=== PATIENT | female | born 1955 | race Caucasian/White ===

== ENCOUNTER 2017-09-24 16:50 | Inpatient (IN) | payer OTHER ==
[~2017-09-24] VITALS: Ht 170.2 cm; Wt 95.5 kg
[~2017-09-24 16:50] MED LIST: ADIPEX-P37.5 MG; ASPIRIN CHEW81 MG PO; BACLOFEN10 MG PO; CETIRIZINE HCL10 MG PO; ELMIRON100 MG PO; LIDODERM700 MG TOP; LIPO; METHYLPREDNISOLO4 M1 PO; METOPROLOL PO; METOPROLOL TART25 MG PO; PANTOPRAZOLE SO40 MG PO; ULTRAM50 MG PO; VITAMIN D1000 UNI1 PO; Z FISH OIL MT; Z VITAMIN D MT; Z.0.ASPIRIN CHEW81 M PO; Z.0.BYSTOLIC10 MG PO; Z.0.ELMIRON100 MG MT; Z.0.ZYRTEC10 MG MT; Z.1.ZEGERID 40 MG1 E MT; ZANTAC PO; ZYRTEC10 M3 PO; [UNRECOGNIZED DRUG - OTHER]
[2017-09-24 17:52] LABS: BASOPHILS # (AUTO) 0.1 (0.0-0.1); BASOPHILS % 0.6 % (0.0-1.0); EOSINOPHILS # (AUTO) 0.3 (0.0-0.4); EOSINOPHILS % 2.1 % (0.0-6.0); HEMATOCRIT 44.1 % (34.2-44.1); HEMOGLOBIN 14.1 g/dL (12.0-16.0); LYMPHOCYTES # (AUTO) 3.2 (1.0-3.2); LYMPHOCYTES % 22.6 % (18.0-39.1); MEAN CORPUSCULAR HEMOGLOBIN 28.4 pg (28-32); MEAN CORPUSCULAR VOLUME 88.9 fL (81-99); MONOCYTES # (AUTO) 1.3 (0.2-0.8); MONOCYTES % 9.5 % (4.4-11.3); NEUTROPHILS # (AUTO) 8.9 (2.1-6.9); NEUTROPHILS % 63.7 % (38.7-80.0); PLATELET COUNT 260 x10e3/uL (140-360); RED BLOOD COUNT 4.96 x10e6/uL (3.6-5.1); RED CELL DISTRIBUTION WIDTH 14.3 % (11.7-14.4)
[2017-09-24 18:02] LABS: COLOR,URINE YELLOW (YELLOW)
[2017-09-24 18:03] LABS: BILIRUBIN,URINE NEGATIVE (NEGATIVE); CLARITY,URINE CLEAR (CLEAR); KETONES,URINE NEGATIVE (NEGATIVE); LEUKOCYTE ESTERASE ,URINE NEGATIVE (NEGATIVE); NITRITE,URINE NEGATIVE (NEGATIVE); PROTEIN,URINE DIPSTICK NEGATIVE (NEGATIVE); URINE UROBILINOGEN 0.2 mg/dL (0.2 - 1)
[2017-09-24 18:08] LABS: ALBUMIN 3.5 g/dL (3.5-5.0); ANION GAP 13.3 mmol/L (8-16); CALCIUM 9.7 mg/dL (8.4-10.2); CREATININE, SERUM 1.07 mg/dL (0.57-1.11); POTASSIUM 4.3 mmol/L (3.5-5.1)
[2017-09-24 18:16] LABS: BACTERIA,URINE FEW /HPF; CALCIUM OXALATE CRYSTALS,UR MANY (FEW); EPITHELIAL CELLS,URINE FEW /LPF; WBC,URINE (MAN) 0-5 /HPF (0-5)
[2017-09-24] MEDS ORDERED: MORPHINE SULFATE 2 MG/ML SYR IV STA (18:17)
[2017-09-24] MEDS ORDERED: SODIUM CHLORIDE 0.9% 1000ML 1,000 ML IV STA (18:17)
[2017-09-24] MEDS ORDERED: ONDANSETRON HCL INJ 2 MG/ML VIAL IV STA (18:17)
[2017-09-24 18:32] LABS: AMYLASE 94 U/L (25-125); LIPASE 173 U/L (8-78)
[2017-09-24] MEDS ORDERED: DIATRIZOATE MEGL/DIATRIZOA SOD 30 ML BTL PO ONE (18:39)
[2017-09-24] MEDS ORDERED: KETOROLAC TROMETHAMINE 30 MG/ML VIAL IV ONE (18:45)
[2017-09-24 18:47] LABS: CREATINE KINASE 75 IU/L (29-168)
--- NOTE | 2017-09-24 20:24 | Diagnostic Imaging Report ---
EXAM: CT Abdomen and Pelvis WITH contrast INDICATION: COMPARISON: None. TECHNIQUE: Abdomen and Pelvis was scanned utilizing a multidetector helical scanner after administration of IV contrast. Coronal and sagittal reformations were obtained. IV CONTRAST: 100 mL Isovue-370 COMPLICATIONS: None RADIATION DOSE: Total DLP:879 mGy*cm Estimated effective dose: (DLP x 0.015 x size factor) mSv CTDIvol has been reviewed. It is below the limits set by the Radiation Protocol Committee (RPC). FINDINGS: Abdomen: Lung Bases: Atelectasis. Solid Organs: Decreased attenuation the liver present consistent with steatosis. Solid organs otherwise unremarkable. Upper GI Tract: Gastric decompression limits adequate evaluation. No small bowel obstructive changes. Vascularity: Mild aortic vascular calcifications with no aneurysm. Lymph Nodes: No suspicious adenopathy. Other: Diastases ventral abdominal wall with apparent prior hernia repair changes. Pelvis: Bladder: Unremarkable. Other: Uterus absent. Calcified injection granulomata. Colon: There are a few scattered diverticula. No CT evidence of diverticulitis. Appendix not inflamed. Bones: Lower lumbar degenerative changes with degenerative anterolisthesis L5-S1. Soft tissue lipoma inferior aspect right scapula. IMPRESSION: 1. No distinct acute finding. 2. Diverticulosis without CT evidence of diverticulitis. 3. Hepatic steatosis. Signed by: Dr. Rogerio Littlejohn MD on 09/24/2017 8:21 PM
[2017-09-24 23:05] VITALS: BP 141/82
[2017-09-24] MEDS: SODIUM CHLORIDE 0.9% 1000ML 1,000 ML IV SCH (23:36)
[2017-09-25] VITALS (8 sets, daily range): BP systolic 107–141; BP diastolic 61–82
[2017-09-25] MEDS: ONDANSETRON HCL INJ 2 MG/ML VIAL IV PRN ×3 (04:10→22:15)
[2017-09-25 06:44] LABS: BASOPHILS # (AUTO) 0.1 (0.0-0.1); BASOPHILS % 0.7 % (0.0-1.0); EOSINOPHILS # (AUTO) 0.2 (0.0-0.4); EOSINOPHILS % 1.9 % (0.0-6.0); HEMOGLOBIN 13.6 g/dL (12.0-16.0); LYMPHOCYTES # (AUTO) 2.8 (1.0-3.2); LYMPHOCYTES % 27.2 % (18.0-39.1); MEAN CORPUSCULAR HEMOGLOBIN 28.5 pg (28-32); MEAN CORPUSCULAR HGB CONC 31.6 g/dL (31-35); MEAN CORPUSCULAR VOLUME 90.1 fL (81-99); MONOCYTES # (AUTO) 0.8 (0.2-0.8); MONOCYTES % 8.1 % (4.4-11.3); NEUTROPHILS # (AUTO) 6.4 (2.1-6.9); NEUTROPHILS % 61.5 % (38.7-80.0); PLATELET COUNT 230 x10e3/uL (140-360); RED BLOOD COUNT 4.77 x10e6/uL (3.6-5.1); RED CELL DISTRIBUTION WIDTH 14.2 % (11.7-14.4)
[2017-09-25 07:11] LABS: ALANINE AMINOTRANSFERASE 23 IU/L (0-55); ALBUMIN 3.1 g/dL (3.5-5.0); ALKALINE PHOSPHATASE 78 IU/L (40-150); AMYLASE 73 U/L (25-125); ANION GAP 9.5 mmol/L (8-16); BLOOD UREA NITROGEN 21 mg/dL (7-26); BUN/CREATININE RATIO 23 (6-25); CALCIUM 8.8 mg/dL (8.4-10.2); CARBON DIOXIDE 27 mmol/L (22-29); CHLORIDE 107 mmol/L (98-107); EST GLOMERULAR FILTRATION RATE > 60 ML/MIN (60-); GLUCOSE 99 mg/dL (74-118); LIPASE 86 U/L (8-78); POTASSIUM 4.5 mmol/L (3.5-5.1); SODIUM 139 mmol/L (136-145)
[2017-09-25] MEDS: SODIUM CHLORIDE 0.9% 1000ML 1,000 ML IV SCH ×3 (08:28→17:42)
[2017-09-25] MEDS: HYDROMORPHONE 1MG/1ML INJ IV PRN ×3 (09:00→22:15)
[2017-09-25] MEDS ORDERED: ACETAMINOPHEN 325 MG TAB PO PRN (18:00)
[2017-09-26] VITALS (7 sets, daily range): BP systolic 112–140; BP diastolic 66–78
[2017-09-26] MEDS: SODIUM CHLORIDE 0.9% 1000ML 1,000 ML IV SCH ×5 (00:22→19:54)
[2017-09-26] MEDS: ONDANSETRON HCL INJ 2 MG/ML VIAL IV PRN ×4 (03:10→21:18)
[2017-09-26] MEDS: LORAZEPAM 1 MG TAB PO PRN (21:18)
[2017-09-26] MEDS: HYDROMORPHONE 1MG/1ML INJ IV PRN (21:18)
[2017-09-27] VITALS (8 sets, daily range): BP systolic 125–158; BP diastolic 59–89
[2017-09-27] MEDS: SODIUM CHLORIDE 0.9% 1000ML 1,000 ML IV SCH ×3 (03:02→20:42)
[2017-09-27] MEDS: PANTOPRAZOLE 40 MG 10ML VIAL IV SCH (10:30)
[2017-09-27] MEDS: LORAZEPAM 1 MG TAB PO PRN (20:42)
[2017-09-28] VITALS (8 sets, daily range): BP systolic 125–145; BP diastolic 59–78
[2017-09-28] MEDS ORDERED: ACETAMINOPHEN 325 MG TAB PO PRN (05:30)
[2017-09-28] MEDS: PANTOPRAZOLE 40 MG 10ML VIAL IV SCH (08:27)
[2017-09-28] MEDS: LORAZEPAM 1 MG TAB PO PRN (21:43)
[2017-09-29 01:14] VITALS: BP 114/63
[2017-09-29 05:13] VITALS: BP 137/73
[2017-09-29 08:00] VITALS: BP 124/84
== END 2017-09-29 10:30 | disposition home or self-care (01) | DRG 440 ==
LOC: ER 16:50 → ERHOLD 21:45 → MED/SURG3 22:14
PROVIDERS: ADMIT Internal Medicine; ATTEND Internal Medicine
DX: K85.00 Idiopathic acute pancreatitis without necrosis or infection (principal); I10 Essential (primary) hypertension; Z88.5 Allergy status to narcotic agent; Z88.0 Allergy status to penicillin; Z88.2 Allergy status to sulfonamides; F41.9 Anxiety disorder, unspecified; K21.9 Gastro-esophageal reflux disease without esophagitis
CPT/HCPCS: 36415; 74177; 80053; 81001; 82150; 82550; 82553; 83690; 84484; 85025; 93005; 99284; J1170; J1885; J2270; J2405; J7030

== ENCOUNTER → 2017-12-23 | Day surgery (SDC) | payer OTHER ==
[~2017-12-23] MED LIST changes: +ASPIR 8181 MG PO; +ATENOLOL50 MG PO; +BENADRYL25 M1 PO; +COLACE100 MG PO; +LORAZEPAM1 MG PO; +LOSARTAN POTASS25 MG PO; +MAGNESIUM OXID400 MG PO; +MELOXICAM7.5 MG PO; +MIDAZOLAM HCL 2 MG/2 ML VIAL ONE; +PROPOFOL IV EMULSION 10 MG/ML 50 ML VIAL ONE; +VITAMIN B COMP1 EACH PO; +VITAMIN D35000 UNIT PO
[2017-12-23 09:05] VITALS: BP 129/77
== END | disposition home or self-care (01) ==
LOC: OR 05:26
PROVIDERS: ATTEND Internal Medicine Gastroenterology
DX: Z12.11 Encounter for screening for malignant neoplasm of colon (principal); D12.2 Benign neoplasm of ascending colon; D12.0 Benign neoplasm of cecum; D12.5 Benign neoplasm of sigmoid colon; D12.3 Benign neoplasm of transverse colon; I10 Essential (primary) hypertension; Z71.3 Dietary counseling and surveillance; E66.9 Obesity, unspecified; Z68.34 Body mass index [BMI] 34.0-34.9, adult; Z87.19 Personal history of other diseases of the digestive system; K21.9 Gastro-esophageal reflux disease without esophagitis; Z87.440 Personal history of urinary (tract) infections; Z88.5 Allergy status to narcotic agent; Z88.0 Allergy status to penicillin; Z88.2 Allergy status to sulfonamides; Z88.8 Allergy status to other drugs, medicaments and biological substances; Z86.010 Personal history of colon polyps; K57.30 Diverticulosis of large intestine without perforation or abscess without bleeding; K64.8 Other hemorrhoids; K64.4 Residual hemorrhoidal skin tags
CPT/HCPCS: 45385; J2250

== ENCOUNTER 2018-02-26 08:22 | Emergency (ER) | payer OTHER ==
[~2018-02-26] VITALS: Ht 170.2 cm; Wt 95.3 kg
[~2018-02-26 08:22] MED LIST changes: -MIDAZOLAM HCL 2 MG/2 ML VIAL ONE; -PROPOFOL IV EMULSION 10 MG/ML 50 ML VIAL ONE
[2018-02-26] MEDS ORDERED: PROMETHAZINE HCL (IM) 25 MG/ML VIAL IM STA (08:37)
[2018-02-26] MEDS ORDERED: ONDANSETRON HCL INJ 2 MG/ML VIAL IV STA (08:37)
[2018-02-26] MEDS ORDERED: SODIUM CHLORIDE 0.9% 1000ML 1,000 ML IV STA (08:37)
[2018-02-26 08:53] LABS: BASOPHILS # (AUTO) 0.1 (0.0-0.1); BASOPHILS % 0.6 % (0.0-1.0); EOSINOPHILS # (AUTO) 0.3 (0.0-0.4); EOSINOPHILS % 3.1 % (0.0-6.0); HEMATOCRIT 45.7 % (34.2-44.1); HEMOGLOBIN 15.3 g/dL (12.0-16.0); LYMPHOCYTES # (AUTO) 2.5 (1.0-3.2); LYMPHOCYTES % 22.7 % (18.0-39.1); MEAN CORPUSCULAR HEMOGLOBIN 29.5 pg (28-32); MEAN CORPUSCULAR HGB CONC 33.5 g/dL (31-35); MEAN CORPUSCULAR VOLUME 88.2 fL (81-99); MONOCYTES # (AUTO) 0.8 (0.2-0.8); MONOCYTES % 7.1 % (4.4-11.3); NEUTROPHILS # (AUTO) 7.3 (2.1-6.9); PLATELET COUNT 231 x10e3/uL (140-360); RED BLOOD COUNT 5.18 x10e6/uL (3.6-5.1)
[2018-02-26 09:16] LABS: ALANINE AMINOTRANSFERASE 34 IU/L (0-55); ALBUMIN 3.7 g/dL (3.5-5.0); ALKALINE PHOSPHATASE 97 IU/L (40-150); ANION GAP 14.1 mmol/L (8-16); BLOOD UREA NITROGEN 16 mg/dL (7-26); BUN/CREATININE RATIO 16 (6-25); CALCIUM 9.9 mg/dL (8.4-10.2); CARBON DIOXIDE 29 mmol/L (22-29); CHLORIDE 104 mmol/L (98-107); CREATINE KINASE 62 IU/L (29-168); CREATININE, SERUM 1.02 mg/dL (0.57-1.11); EST GLOMERULAR FILTRATION RATE 55 ML/MIN (60-); GLUCOSE 128 mg/dL (74-118); LIPASE 42 U/L (8-78); POTASSIUM 4.1 mmol/L (3.5-5.1); SODIUM 143 mmol/L (136-145)
--- NOTE | 2018-02-26 09:21 | Diagnostic Imaging Report ---
PROCEDURE:X-RAY ABDOMEN - KUB COMPARISON:Abdominal radiograph 07/23/2014, CT abdomen and pelvis with contrast 11/14/2014. INDICATIONS:NAUSEA, VOMITING FINDINGS: The bowel gas pattern shows no dilated, air-filled loops of bowel. Gaseous distention of the stomach is noted. Gas and fecal material is present throughout the large bowel. No mass effect or organomegaly. Right pelvic surgical clips. Dystrophic calcification in the soft tissues of the right flank seen to better advantage on comparison CT. Otherwise no abnormal abdominal calcifications. Regional skeletal structures are intact. Multilevel degenerative disc changes of the lumbar spine most notable at L5-S1 seen to better advantage on comparison CT. CONCLUSION: nonobstructive bowel gas pattern. Dictated by: Jw Chisholm M.D. on 02/26/2018 at 9:31 Electronically approved by: Jw Chisholm M.D. on 02/26/2018 at 9:31
[2018-02-26 09:59] LABS: BILIRUBIN,URINE NEGATIVE (NEGATIVE); CLARITY,URINE CLEAR (CLEAR); COLOR,URINE YELLOW (YELLOW); KETONES,URINE NEGATIVE (NEGATIVE); LEUKOCYTE ESTERASE ,URINE NEGATIVE (NEGATIVE); NITRITE,URINE NEGATIVE (NEGATIVE); PROTEIN,URINE DIPSTICK NEGATIVE (NEGATIVE); URINE UROBILINOGEN 0.2 mg/dL (0.2 - 1)
[2018-02-26 10:11] LABS: WBC,URINE (MAN) 0-5 /HPF (0-5)
[2018-02-26 10:12] LABS: EPITHELIAL CELLS,URINE RARE /LPF; TRANSITIONAL EPI CELLS,URINE RARE
--- NOTE | 2018-02-26 10:37 | Diagnostic Imaging Report ---
PROCEDURE: CT ABDOMEN AND PELVIS WITH CONTRAST TECHNIQUE: Helical axial CT images of the abdomen and pelvis were obtained after the intravenous administration of 100 cc Isovue 370 and the oral administration of water. Coronal and sagittal reformatted images were available for review. COMPARISON: 09/24/2017. INDICATIONS: ABDOMINAL PAIN FINDINGS: LOWER THORAX: Linear and groundglass opacities in the dependent lower lobes compatible with subsegmental atelectasis. HEPATOBILIARY: As before, hepatic parenchyma is diffusely hypoattenuating compatible with steatosis. No focal hepatic lesion or intrahepatic biliary ductal dilatation. The gallbladder has been removed. SPLEEN: Subcentimeter hypoattenuating splenic lesion is too small to further characterize but may represent small cysts. PANCREAS: No focal pancreatic mass or pancreatic ductal dilatation. ADRENALS: No nodules. KIDNEYS/URETERS: No hydronephrosis, calculi, or gross mass lesion. PELVIC ORGANS/BLADDER: The urinary bladder is incompletely distended but otherwise unremarkable. The uterus is not identified and has presumably been removed. No adnexal mass. PERITONEUM / RETROPERITONEUM: No ascites. No pneumoperitoneum. LYMPH NODES: No pelvic sidewall, retroperitoneal, or mesenteric lymphadenopathy. VESSELS: The abdominal aorta, major branch vessels, and iliac arterial systems are well visualized and patent. Minimal atherosclerotic vascular disease. The common hepatic artery is replaced to the superior mesenteric artery. Oral vein, splenic vein, and central superior mesenteric vein are patent. GI TRACT: The large bowel shows no evidence of distention or wall thickening. Scattered diverticula without inflammatory findings. The appendix is normal. Postsurgical changes related to mesh repair of ventral abdominal wall hernia with adjacent several loops of small bowel, grossly unchanged. Presumed prior partial small bowel resection with primary anastomosis as seen on series 2 image 79, also unchanged in appearance. The stomach is partially collapsed with prominence of the rugal folds. BONES AND SOFT TISSUES: Postsurgical changes of the abdominal wall as above. Dystrophic calcifications in the subcutaneous fat of the flanks, right greater than left. Multilevel degenerative disc changes of the lumbar spine with advanced degenerative spondylolisthesis of L5 over S1 and partial ankylosis. Lipoma deep to the right trapezius is again noted. IMPRESSION: No acute intra-abdominal or pelvic CT abnormalities. Minimal colon diverticulosis without evidence of diverticulitis. Hepatic steatosis. Dictated by: Jw Chisholm M.D. on 02/26/2018 at 10:48 Electronically approved by: Jw Chisholm M.D. on 02/26/2018 at 10:48
[2018-02-26] MEDS ORDERED: ZOFRAN4 MG SL (11:18)
[2018-02-26] MEDS ORDERED: IOPAMIDOL 370 MG/ML 200 ML INFUS..BTL INJ ONE (13:58)
[2018-02-26] MEDS ORDERED: SODIUM CHLORIDE 0.9% 50ML 50 ML ONE (13:58)
== END 2018-02-26 11:48 | disposition home or self-care (01) ==
LOC: ER 08:22
DX: R10.33 Periumbilical pain (principal); R10.84 Generalized abdominal pain; R11.2 Nausea with vomiting, unspecified
CPT/HCPCS: 36415; 74018; 74177; 80053; 81001; 82550; 82553; 83690; 84484; 85025; 99284; J2405; J2550; J7030; Q9967

== ENCOUNTER 2020-03-10 14:12 | Observation (INO) | payer OTHER ==
[~2020-03-10] VITALS: Ht 170.2 cm; Wt 95.3 kg
[~2020-03-10 14:12] MED LIST changes: +ZOFRAN4 MG SL
[2020-03-10] MEDS ORDERED: ASPIRIN 81 MG CHEW TAB PO ONE (15:00)
[2020-03-10] MEDS ORDERED: SODIUM CHLORIDE 0.9% 500ML 500 ML IV ONE (15:00)
[2020-03-10 15:04] LABS: BASOPHILS # (AUTO) 0.1 (0.0-0.1); BASOPHILS % 0.8 % (0.0-1.0); EOSINOPHILS # (AUTO) 0.7 (0.0-0.4); EOSINOPHILS % 5.4 % (0.0-6.0); HEMATOCRIT 44.4 % (34.2-44.1); HEMOGLOBIN 13.9 g/dL (12.0-16.0); LYMPHOCYTES % 25.2 % (18.0-39.1); MEAN CORPUSCULAR HGB CONC 31.3 g/dL (31-35); MEAN CORPUSCULAR VOLUME 86.2 fL (81-99); MONOCYTES # (AUTO) 1.1 (0.2-0.8); MONOCYTES % 9.4 % (4.4-11.3); NEUTROPHILS % 58.7 % (38.7-80.0); PLATELET COUNT 254 x10e3/uL (140-360); RED BLOOD COUNT 5.15 x10e6/uL (3.6-5.1); RED CELL DISTRIBUTION WIDTH 14.5 % (11.7-14.4)
[2020-03-10 15:15] LABS: INR 0.94; PARTIAL THROMBOPLASTIN TIME 26.5 seconds (23.8-35.5)
[2020-03-10] MEDS ORDERED: ONDANSETRON HCL INJ 2MG/ML 2ML 2 MG/ML VIAL IV PRN (16:15)
[2020-03-10] MEDS: FAMOTIDINE 20 MG/2 ML VIAL IV SCH (16:41)
[2020-03-10 17:35] LABS: CLARITY,URINE CLEAR (CLEAR); COLOR,URINE GREEN (YELLOW)
[2020-03-10 17:36] LABS: KETONES,URINE NEGATIVE (NEGATIVE); LEUKOCYTE ESTERASE ,URINE NEGATIVE (NEGATIVE); NITRITE,URINE NEGATIVE (NEGATIVE); PROTEIN,URINE DIPSTICK NEGATIVE (NEGATIVE); URINE UROBILINOGEN 0.2 mg/dL (0.2 - 1)
[2020-03-10 17:53] VITALS: BP 138/83
[2020-03-10 17:58] LABS: BACTERIA,URINE RARE /HPF; EPITHELIAL CELLS,URINE RARE /LPF; RBC,URINE 0-5 /HPF (0-5); RENAL EPITHELIAL CELLS,URINE FEW
[2020-03-10] MEDS ORDERED: USTELL PO (18:20)
[2020-03-10 18:21] VITALS: BP 138/83
[2020-03-10 20:00] VITALS: BP 137/85
[2020-03-10] MEDS ORDERED: DOCUSATE SODIUM 100 MG CAP PO PRN (20:15)
[2020-03-10] MEDS: LORAZEPAM 1 MG TAB PO SCH (20:52)
[2020-03-10] MEDS: ASPIRIN 81 MG CHEW TAB PO SCH (20:52)
[2020-03-10] MEDS: MAGNESIUM OXIDE 400 MG TAB PO SCH (20:52)
[2020-03-10 21:00] VITALS: BP 137/85
[2020-03-10 22:00] LABS: ALANINE AMINOTRANSFERASE 26 IU/L (0-55); ALBUMIN 3.4 g/dL (3.5-5.0); ALBUMIN/GLOBULIN RATIO 1.1 (0.8-2.0); ALKALINE PHOSPHATASE 110 IU/L (40-150); BLOOD UREA NITROGEN 17 mg/dL (7-26); BUN/CREATININE RATIO 16 (6-25); CALCIUM 8.5 mg/dL (8.4-10.2); CARBON DIOXIDE 28 mmol/L (22-29); CHLORIDE 104 mmol/L (98-107); CREATINE KINASE 94 IU/L (29-168); CREATININE, SERUM 1.04 mg/dL (0.57-1.11); EST GLOMERULAR FILTRATION RATE 54 ML/MIN (60-); GLUCOSE 105 mg/dL (74-118); MAGNESIUM 2.1 MG/DL (1.3-2.1); SODIUM 140 mmol/L (136-145)
[2020-03-11] VITALS (8 sets, daily range): BP systolic 96–150; BP diastolic 53–79
[2020-03-11 02:41] LABS: CREATINE KINASE 70 IU/L (29-168)
[2020-03-11] MEDS: FAMOTIDINE 20 MG/2 ML VIAL IV SCH ×2 (04:26→17:12)
[2020-03-11 06:40] LABS: BASOPHILS # (AUTO) 0.1 (0.0-0.1); BASOPHILS % 0.9 % (0.0-1.0); EOSINOPHILS # (AUTO) 0.5 (0.0-0.4); EOSINOPHILS % 6.3 % (0.0-6.0); HEMOGLOBIN 13.4 g/dL (12.0-16.0); LYMPHOCYTES # (AUTO) 2.2 (1.0-3.2); LYMPHOCYTES % 27.2 % (18.0-39.1); MEAN CORPUSCULAR HGB CONC 31.2 g/dL (31-35); MEAN CORPUSCULAR VOLUME 86.5 fL (81-99); MONOCYTES % 11.7 % (4.4-11.3); NEUTROPHILS # (AUTO) 4.4 (2.1-6.9); NEUTROPHILS % 53.5 % (38.7-80.0); PLATELET COUNT 224 x10e3/uL (140-360); RED BLOOD COUNT 4.97 x10e6/uL (3.6-5.1); RED CELL DISTRIBUTION WIDTH 14.6 % (11.7-14.4)
[2020-03-11 07:06] LABS: CREATINE KINASE 63 IU/L (29-168)
[2020-03-11 07:08] LABS: ALBUMIN 2.8 g/dL (3.5-5.0); ALBUMIN/GLOBULIN RATIO 0.9 (0.8-2.0); ANION GAP 10.3 mmol/L (8-16); CALCIUM 8.4 mg/dL (8.4-10.2); CREATININE, SERUM 0.94 mg/dL (0.57-1.11); POTASSIUM 4.3 mmol/L (3.5-5.1)
[2020-03-11] MEDS: USTELL PO SCH ×2 (09:00→17:00)
[2020-03-11] MEDS ORDERED: LOSARTAN POTASSIUM 25 MG TAB PO SCH (09:00)
[2020-03-11] MEDS: LORATADINE 10 MG TAB PO SCH (09:13)
[2020-03-11] MEDS: ATENOLOL 50 MG TAB PO SCH (09:13)
[2020-03-11] MEDS: ASPIRIN 81 MG ENTERIC COATED PO SCH (09:13)
[2020-03-11] MEDS: LORAZEPAM 1 MG TAB PO SCH ×2 (09:13→21:51)
[2020-03-11] MEDS: CHOLECALCIFEROL 1,000 UNIT TAB PO SCH (09:14)
[2020-03-11] MEDS ORDERED: CLOPIDOGREL BISULFATE 75 MG TAB PO NR (11:00)
[2020-03-11] MEDS: ASPIRIN 81 MG CHEW TAB PO SCH (21:51)
[2020-03-11] MEDS: MAGNESIUM OXIDE 400 MG TAB PO SCH (21:52)
[2020-03-11] MEDS: ATORVASTATIN 10 MG TAB PO SCH (21:52)
[2020-03-12] VITALS (18 sets, daily range): BP systolic 115–143; BP diastolic 69–88
[2020-03-12] MEDS: FAMOTIDINE 20 MG/2 ML VIAL IV SCH ×2 (04:15→17:15)
[2020-03-12 05:39] LABS: BASOPHILS # (AUTO) 0.1 (0.0-0.1); BASOPHILS % 0.7 % (0.0-1.0); EOSINOPHILS # (AUTO) 0.6 (0.0-0.4); EOSINOPHILS % 5.4 % (0.0-6.0); HEMATOCRIT 42.9 % (34.2-44.1); HEMOGLOBIN 13.4 g/dL (12.0-16.0); LYMPHOCYTES # (AUTO) 2.6 (1.0-3.2); LYMPHOCYTES % 25.1 % (18.0-39.1); MEAN CORPUSCULAR HEMOGLOBIN 26.5 pg (28-32); MEAN CORPUSCULAR HGB CONC 31.2 g/dL (31-35); MONOCYTES # (AUTO) 1.1 (0.2-0.8); MONOCYTES % 10.4 % (4.4-11.3); NEUTROPHILS % 57.9 % (38.7-80.0); PLATELET COUNT 235 x10e3/uL (140-360); RED BLOOD COUNT 5.05 x10e6/uL (3.6-5.1); RED CELL DISTRIBUTION WIDTH 14.7 % (11.7-14.4)
[2020-03-12] MEDS: SODIUM CHLORIDE 0.9% 1000ML 1,000 ML IV SCH ×3 (05:52→14:30)
[2020-03-12 06:05] LABS: ALBUMIN 3.1 g/dL (3.5-5.0); ANION GAP 12.4 mmol/L (8-16); CALCIUM 8.7 mg/dL (8.4-10.2); POTASSIUM 4.4 mmol/L (3.5-5.1)
[2020-03-12 06:43] LABS: INR 0.94
[2020-03-12] MEDS: USTELL PO SCH ×2 (08:46→17:00)
[2020-03-12] MEDS: ASPIRIN 81 MG ENTERIC COATED PO SCH (08:47)
[2020-03-12] MEDS: LORATADINE 10 MG TAB PO SCH (08:47)
[2020-03-12] MEDS: LORAZEPAM 1 MG TAB PO SCH ×2 (08:47→21:00)
[2020-03-12] MEDS: ATENOLOL 50 MG TAB PO SCH (08:48)
[2020-03-12] MEDS: CHOLECALCIFEROL 1,000 UNIT TAB PO SCH (08:52)
[2020-03-12] MEDS ORDERED: LIDOCAINE HCL 2% LOCAL 20 ML VIAL ONE (12:56)
[2020-03-12] MEDS ORDERED: MIDAZOLAM HCL 2 MG/2 ML VIAL ONE (12:56)
[2020-03-12] MEDS ORDERED: FENTANYL CITRATE/PF 100MCG/2 ML INJ ONE (12:56)
[2020-03-12] MEDS ORDERED: IOPAMIDOL 370 MG/ML 200 ML INFUS..BTL INJ ONE (12:57)
[2020-03-12] MEDS ORDERED: SODIUM CHLORIDE 0.9% 1000ML 1,000 ML ONE (12:57)
[2020-03-12] MEDS ORDERED: HEPARIN SOD/SOD CHLORIDE 2,000 ML ONE (12:57)
[2020-03-12] MEDS ORDERED: VERAPAMIL HCL 2.5 MG/ML 2 ML VIAL ONE (13:48)
[2020-03-12] MEDS ORDERED: HEPARIN SOD (PORCINE) 1000 UNIT/ML 30ML ONE (13:50)
[2020-03-12] MEDS ORDERED: ONDANSETRON HCL INJ 2MG/ML 2ML 2 MG/ML VIAL IV PRN (14:30)
[2020-03-12] MEDS: ATORVASTATIN 10 MG TAB PO SCH (21:00)
[2020-03-12] MEDS: MAGNESIUM OXIDE 400 MG TAB PO SCH (21:00)
[2020-03-12] MEDS: ASPIRIN 81 MG CHEW TAB PO SCH (21:00)
[2020-03-13] MEDS: SODIUM CHLORIDE 0.9% 1000ML 1,000 ML IV SCH ×2 (00:32→10:30)
[2020-03-13] MEDS: FAMOTIDINE 20 MG/2 ML VIAL IV SCH (04:26)
[2020-03-13 04:50] VITALS: BP_SYST 135; BP_SYST 143; BP_DIAS 62; BP_DIAS 80
[2020-03-13 07:40] VITALS: BP 143/84
[2020-03-13 08:20] VITALS: BP 143/84
[2020-03-13] MEDS: USTELL PO SCH (09:00)
[2020-03-13] MEDS: LORAZEPAM 1 MG TAB PO SCH (09:11)
[2020-03-13] MEDS: LORATADINE 10 MG TAB PO SCH (09:11)
[2020-03-13] MEDS: CHOLECALCIFEROL 1,000 UNIT TAB PO SCH (09:12)
[2020-03-13] MEDS: ATENOLOL 50 MG TAB PO SCH (09:12)
[2020-03-13 11:20] VITALS: BP 138/84
== END 2020-03-13 12:05 | disposition home or self-care (01) ==
LOC: ER 14:26 → ERHOLD 16:13 → MED/SURG2 17:38
PROVIDERS: ADMIT Internal Medicine; ATTEND Internal Medicine
DX: I25.110 Atherosclerotic heart disease of native coronary artery with unstable angina pectoris (principal); I10 Essential (primary) hypertension; F41.9 Anxiety disorder, unspecified; E87.5 Hyperkalemia; E78.00 Pure hypercholesterolemia, unspecified; E66.9 Obesity, unspecified; Z68.32 Body mass index [BMI] 32.0-32.9, adult; Z20.828 Contact with and (suspected) exposure to other viral communicable diseases
CPT/HCPCS: 36415 ×3; 70450; 71045; 80053 ×3; 80061 ×2; 81001; 82550 ×2; 82553 ×2; 83735; 83880; 84484 ×2; 85025 ×3; 85610 ×2; 85730; 87086; 87186; 93005; 93306; 93452; 99284; G0378 ×4; J1644; J2001; J2250; J3010; J7030 ×2; J7040; Q9967; U0002; 93458; 99152; 99153; 99282; C1769; C1887

== ENCOUNTER → 2020-08-03 | Outpatient (CLI) | payer BC ==
[~2020-08-03] MED LIST changes: +USTELL PO
== END ==
LOC: RAD 10:13
PROVIDERS: ATTEND Internal Medicine
DX: M54.5 Low back pain (principal)
CPT/HCPCS: 72110; 72220

== ENCOUNTER → 2020-08-24 | Outpatient (CLI) | payer BC | LOC: MRI 07:46 | PROVIDERS: ATTEND Internal Medicine | DX: M54.30 Sciatica, unspecified side (principal) | CPT/HCPCS: 72148 ==

== ENCOUNTER → 2021-02-25 | Day surgery (SDC) | payer BC ==
[2021-02-20 09:43] LABS: BASOPHILS # (AUTO) 0.1 (0.0-0.1); BASOPHILS % 0.6 % (0.0-1.0); EOSINOPHILS # (AUTO) 0.3 (0.0-0.4); EOSINOPHILS % 2.7 % (0.0-6.0); HEMATOCRIT 45.4 % (34.2-44.1); HEMOGLOBIN 14.2 g/dL (12.0-16.0); LYMPHOCYTES # (AUTO) 3.3 (1.0-3.2); LYMPHOCYTES % 30.1 % (18.0-39.1); MEAN CORPUSCULAR HGB CONC 31.3 g/dL (31-35); MEAN CORPUSCULAR VOLUME 89.5 fL (81-99); MONOCYTES # (AUTO) 0.8 (0.2-0.8); MONOCYTES % 7.2 % (4.4-11.3); NEUTROPHILS # (AUTO) 6.4 (2.1-6.9); NEUTROPHILS % 58.8 % (38.7-80.0); PLATELET COUNT 245 x10e3/uL (140-360); RED BLOOD COUNT 5.07 x10e6/uL (3.6-5.1); RED CELL DISTRIBUTION WIDTH 15.3 % (11.7-14.4)
[~2021-02-25] MED LIST changes: +ALBUTEROL SULF 0.083% NEB SOLN 3 ML NEB ONE; +ATROPINE SULFATE 1 MG/ML VIAL ONE; +BUPIVACAINE 0.25% 30ML SDV ONE; +CELECOXIB 200 MG CAP ONE; +DEXAMETHASONE SOD PHOS 10 MG/1 ML VIAL ONE; +FENTANYL CITRATE/PF 100MCG/2 ML INJ ONE; +GABAPENTIN 300 MG CAP ONE; +KETOROLAC TROMETHAMINE 30 MG/ML VIAL ONE; +LIDOCAINE 2%/ EPINEPHRINE 20ML MDV ONE; +LIDOCAINE HCL 2% LOCAL INJ 5 ML SDV VIAL INJ ONE; +MIDAZOLAM HCL 2 MG/2 ML VIAL ONE; +NEOSTIGMINE 1 MG/ML 10ML VIAL ONE; +ONDANSETRON HCL INJ 2MG/ML 2ML 2 MG/ML VIAL ONE; +POVIDONE IODINE 0.05% 0.05 % ML PO ONE; +PROPOFOL IV EMULSION 10 MG/ML 20 ML VIAL ONE; +ROCURONIUM BROMIDE 10 MG/ML 5ML VIAL IV ONE; +ROPIVACAINE 0.5% 5 MG/ML 30 ML SDV ONE; +ROPIVACAINE 246.25 MG, EPINEPHRINE HCL 1:1000 1ML 0.5 MG, CLONIDINE HCL 0.08 MG, KETORO... INJ ONE; +SEVOFLURANE INHAL SOLN 250 ML PEN BTL ONE; +SODIUM CHLORIDE 0.9% 500ML 500 ML ONE; +TRANEXAMIC ACID 1,000 MG/10 ML ML ONE; +Vancomycin IV 1,000 MG ONE
[2021-02-25 09:35] VITALS: BP 128/67
== END | disposition home or self-care (01) ==
LOC: OR 06:19
PROVIDERS: ATTEND Specialist
DX: M19.011 Primary osteoarthritis, right shoulder (principal); I25.10 Atherosclerotic heart disease of native coronary artery without angina pectoris; I10 Essential (primary) hypertension; Z88.1 Allergy status to other antibiotic agents; Z88.2 Allergy status to sulfonamides; Z88.6 Allergy status to analgesic agent; Z88.0 Allergy status to penicillin; Z01.812 Encounter for preprocedural laboratory examination; Z20.822 Contact with and (suspected) exposure to COVID-19; Z79.82 Long term (current) use of aspirin; Z79.899 Other long term (current) drug therapy
CPT/HCPCS: 23470; 36415; 85025; 86850; 86900; 86920; C1776 ×3; J0171; J0461; J0690; J1100; J1885; J2001 ×2; J2250; J2405; J2704; J2710; J2795; J3010; J3370; J7040; U0002

== ENCOUNTER 2021-07-19 17:09 | Inpatient (IN) | payer BC ==
[~2021-07-19] VITALS: Ht 170.2 cm; Wt 95.3 kg
[~2021-07-19 17:09] MED LIST changes: -ALBUTEROL SULF 0.083% NEB SOLN 3 ML NEB ONE; -ATROPINE SULFATE 1 MG/ML VIAL ONE; -BUPIVACAINE 0.25% 30ML SDV ONE; -CELECOXIB 200 MG CAP ONE; -DEXAMETHASONE SOD PHOS 10 MG/1 ML VIAL ONE; -FENTANYL CITRATE/PF 100MCG/2 ML INJ ONE; -GABAPENTIN 300 MG CAP ONE; -KETOROLAC TROMETHAMINE 30 MG/ML VIAL ONE; -LIDOCAINE 2%/ EPINEPHRINE 20ML MDV ONE; -LIDOCAINE HCL 2% LOCAL INJ 5 ML SDV VIAL INJ ONE; -MIDAZOLAM HCL 2 MG/2 ML VIAL ONE; -NEOSTIGMINE 1 MG/ML 10ML VIAL ONE; -ONDANSETRON HCL INJ 2MG/ML 2ML 2 MG/ML VIAL ONE; -POVIDONE IODINE 0.05% 0.05 % ML PO ONE; -PROPOFOL IV EMULSION 10 MG/ML 20 ML VIAL ONE; -ROCURONIUM BROMIDE 10 MG/ML 5ML VIAL IV ONE; -ROPIVACAINE 0.5% 5 MG/ML 30 ML SDV ONE; -ROPIVACAINE 246.25 MG, EPINEPHRINE HCL 1:1000 1ML 0.5 MG, CLONIDINE HCL 0.08 MG, KETORO... INJ ONE; -SEVOFLURANE INHAL SOLN 250 ML PEN BTL ONE; -SODIUM CHLORIDE 0.9% 500ML 500 ML ONE; -TRANEXAMIC ACID 1,000 MG/10 ML ML ONE; -Vancomycin IV 1,000 MG ONE
[2021-07-19] MEDS ORDERED: ONDANSETRON HCL INJ 2MG/ML 2ML 2 MG/ML VIAL IV STA (17:36)
[2021-07-19] MEDS ORDERED: SODIUM CHLORIDE 0.9% 1000ML 1,000 ML IV ONE (17:45)
[2021-07-19] MEDS ORDERED: ONDANSETRON HCL INJ 2MG/ML 2ML 2 MG/ML VIAL ONE (17:48)
[2021-07-19 17:49] LABS: BASOPHILS # (AUTO) 0.1 (0.0-0.1); BASOPHILS % 0.4 % (0.0-1.0); EOSINOPHILS # (AUTO) 0.1 (0.0-0.4); EOSINOPHILS % 0.3 % (0.0-6.0); HEMATOCRIT 48.6 % (34.2-44.1); HEMOGLOBIN 15.7 g/dL (12.0-16.0); LYMPHOCYTES # (AUTO) 2.3 (1.0-3.2); LYMPHOCYTES % 12.6 % (18.0-39.1); MEAN CORPUSCULAR HGB CONC 32.3 g/dL (31-35); MEAN CORPUSCULAR VOLUME 86.6 fL (81-99); MONOCYTES # (AUTO) 1.3 (0.2-0.8); MONOCYTES % 6.9 % (4.4-11.3); NEUTROPHILS # (AUTO) 14.4 (2.1-6.9); NEUTROPHILS % 79.2 % (38.7-80.0); PLATELET COUNT 279 x10e3/uL (140-360); RED BLOOD COUNT 5.61 x10e6/uL (3.6-5.1); RED CELL DISTRIBUTION WIDTH 15.4 % (11.7-14.4)
[2021-07-19 18:07] LABS: ALANINE AMINOTRANSFERASE 26 IU/L (0-55); ALBUMIN 3.5 g/dL (3.5-5.0); ALBUMIN/GLOBULIN RATIO 0.7 (0.8-2.0); ALKALINE PHOSPHATASE 114 IU/L (40-150); ANION GAP 16.8 mmol/L (8-16); BLOOD UREA NITROGEN 21 mg/dL (7-26); BUN/CREATININE RATIO 20 (6-25); CALCIUM 9.9 mg/dL (8.4-10.2); CARBON DIOXIDE 26 mmol/L (22-29); CHLORIDE 100 mmol/L (98-107); CREATINE KINASE 65 IU/L (29-168); CREATININE, SERUM 1.05 mg/dL (0.57-1.11); EST GLOMERULAR FILTRATION RATE 53 ML/MIN (60-); GLUCOSE 150 mg/dL (74-118); POTASSIUM 4.8 mmol/L (3.5-5.1); SODIUM 138 mmol/L (136-145)
[2021-07-19 18:27] LABS: AMYLASE 50 U/L (25-125); LIPASE 47 U/L (8-78)
[2021-07-19] MEDS ORDERED: HYDROMORPHONE 1MG/1ML INJ IV STA (19:13)
[2021-07-19] MEDS ORDERED: IOPAMIDOL 370 MG/ML 100 ML INFUS..BTL INJ ONE (19:39)
[2021-07-19] MEDS ORDERED: BENZOCAINE/TETRACAINE/BUTAMBEN AERO SPRAY 56 GM CAN TOP ONE (21:00)
[2021-07-19] MEDS ORDERED: HYDROMORPHONE 1MG/1ML INJ IV PRN (21:00)
[2021-07-19] MEDS: SODIUM CHLORIDE 0.9% 1000ML 1,000 ML IV SCH (22:00)
[2021-07-19] MEDS: LEVOFLOXACIN 500MG/D5W 100ML IV SCH (22:00)
[2021-07-20] VITALS (10 sets, daily range): BP systolic 131–144; BP diastolic 78–85
[2021-07-20] MEDS: SODIUM CHLORIDE 0.9% 1000ML 1,000 ML IV SCH ×3 (06:00→20:16)
[2021-07-20 06:46] LABS: BASOPHILS # (AUTO) 0.1 (0.0-0.1); BASOPHILS % 0.4 % (0.0-1.0); EOSINOPHILS # (AUTO) 0.3 (0.0-0.4); EOSINOPHILS % 2.3 % (0.0-6.0); HEMATOCRIT 40.5 % (34.2-44.1); HEMOGLOBIN 13.2 g/dL (12.0-16.0); LYMPHOCYTES # (AUTO) 2.3 (1.0-3.2); MEAN CORPUSCULAR HEMOGLOBIN 29.1 pg (28-32); MEAN CORPUSCULAR HGB CONC 32.6 g/dL (31-35); MEAN CORPUSCULAR VOLUME 89.4 fL (81-99); MONOCYTES # (AUTO) 1.3 (0.2-0.8); MONOCYTES % 9.6 % (4.4-11.3); NEUTROPHILS # (AUTO) 9.4 (2.1-6.9); NEUTROPHILS % 70.2 % (38.7-80.0); PLATELET COUNT 211 x10e3/uL (140-360); RED BLOOD COUNT 4.53 x10e6/uL (3.6-5.1); RED CELL DISTRIBUTION WIDTH 16.4 % (11.7-14.4)
[2021-07-20 07:08] LABS: ALBUMIN 2.7 g/dL (3.5-5.0); ANION GAP 10.4 mmol/L (8-16); CALCIUM 8.2 mg/dL (8.4-10.2); CREATININE, SERUM 0.86 mg/dL (0.57-1.11); POTASSIUM 4.4 mmol/L (3.5-5.1)
[2021-07-20] MEDS ORDERED: ACETAMINOPHEN 1000 MG/100 ML IV PRN (10:45)
[2021-07-20] MEDS ORDERED: HYDRALAZINE HCL 20 MG/ML VIAL IV PRN (10:45)
[2021-07-20] MEDS: LEVOFLOXACIN 500MG/D5W 100ML IV SCH (20:16)
[2021-07-20] MEDS: ONDANSETRON HCL INJ 2MG/ML 2ML 2 MG/ML VIAL IV PRN (21:06)
[2021-07-21] VITALS (8 sets, daily range): BP systolic 133–156; BP diastolic 73–90
[2021-07-21] MEDS: SODIUM CHLORIDE 0.9% 1000ML 1,000 ML IV SCH ×3 (04:24→20:18)
[2021-07-21] MEDS: LORAZEPAM INJ 2 MG/ML VIAL IV PRN ×2 (06:38→21:51)
[2021-07-21 07:23] LABS: BASOPHILS # (AUTO) 0.1 (0.0-0.1); BASOPHILS % 0.4 % (0.0-1.0); EOSINOPHILS # (AUTO) 0.2 (0.0-0.4); EOSINOPHILS % 1.8 % (0.0-6.0); HEMATOCRIT 42.4 % (34.2-44.1); HEMOGLOBIN 13.3 g/dL (12.0-16.0); LYMPHOCYTES # (AUTO) 1.9 (1.0-3.2); LYMPHOCYTES % 16.8 % (18.0-39.1); MEAN CORPUSCULAR HEMOGLOBIN 27.7 pg (28-32); MEAN CORPUSCULAR HGB CONC 31.4 g/dL (31-35); MEAN CORPUSCULAR VOLUME 88.1 fL (81-99); MONOCYTES # (AUTO) 0.9 (0.2-0.8); MONOCYTES % 7.8 % (4.4-11.3); NEUTROPHILS # (AUTO) 8.3 (2.1-6.9); NEUTROPHILS % 72.5 % (38.7-80.0); PLATELET COUNT 241 x10e3/uL (140-360); RED BLOOD COUNT 4.81 x10e6/uL (3.6-5.1)
[2021-07-21 07:39] LABS: ALBUMIN 2.9 g/dL (3.5-5.0); ALBUMIN/GLOBULIN RATIO 0.9 (0.8-2.0); ANION GAP 13.9 mmol/L (8-16); CALCIUM 8.3 mg/dL (8.4-10.2); CREATININE, SERUM 0.85 mg/dL (0.57-1.11); MAGNESIUM 2.1 MG/DL (1.3-2.1); POTASSIUM 3.9 mmol/L (3.5-5.1)
[2021-07-21] MEDS: LEVOFLOXACIN 500MG/D5W 100ML IV SCH (20:18)
[2021-07-21] MEDS: ONDANSETRON HCL INJ 2MG/ML 2ML 2 MG/ML VIAL IV PRN (20:18)
[2021-07-22] VITALS (7 sets, daily range): BP systolic 123–133; BP diastolic 70–80
[2021-07-22] MEDS: SODIUM CHLORIDE 0.9% 1000ML 1,000 ML IV SCH ×3 (04:44→21:00)
[2021-07-22] MEDS: LORAZEPAM INJ 2 MG/ML VIAL IV PRN (09:39)
[2021-07-22 12:58] LABS: CLARITY,URINE SL CLOUDY (CLEAR); COLOR,URINE YELLOW (YELLOW); KETONES,URINE 2+ (NEGATIVE); LEUKOCYTE ESTERASE ,URINE NEGATIVE (NEGATIVE); NITRITE,URINE NEGATIVE (NEGATIVE); PROTEIN,URINE DIPSTICK NEGATIVE (NEGATIVE); URINE UROBILINOGEN 0.2 mg/dL (0.2 - 1)
[2021-07-22 13:11] LABS: RBC,URINE 0-5 /HPF (0-5)
[2021-07-22 13:12] LABS: BACTERIA,URINE RARE /HPF; EPITHELIAL CELLS,URINE FEW /LPF; TRANSITIONAL EPI CELLS,URINE MODERATE
[2021-07-22 13:13] LABS: RENAL EPITHELIAL CELLS,URINE RARE
[2021-07-22] MEDS: LEVOFLOXACIN 500MG/D5W 100ML IV SCH (21:20)
[2021-07-23] VITALS: BP 148/80
[2021-07-23 04:00] VITALS: BP 135/72
[2021-07-23] MEDS: SODIUM CHLORIDE 0.9% 1000ML 1,000 ML IV SCH (05:00)
[2021-07-23 08:19] VITALS: BP 153/83
[2021-07-23 08:29] VITALS: BP 153/83
[2021-07-23] MEDS: LORAZEPAM INJ 2 MG/ML VIAL IV PRN (09:47)
[2021-07-23 12:04] VITALS: BP 137/81
[2021-07-23] MEDS ORDERED: LEVOFLOXACIN 500 MG TAB PO SCH (21:00)
== END 2021-07-23 12:33 | disposition home or self-care (01) | DRG 390 ==
LOC: ER 17:25 → ERHOLD 21:25 → MED/SURG3 23:41
PROVIDERS: ADMIT Internal Medicine; ATTEND Internal Medicine
DX: K56.600 Partial intestinal obstruction, unspecified as to cause (principal); I10 Essential (primary) hypertension; Z20.822 Contact with and (suspected) exposure to COVID-19; E66.9 Obesity, unspecified; Z68.32 Body mass index [BMI] 32.0-32.9, adult; E11.9 Type 2 diabetes mellitus without complications; F41.9 Anxiety disorder, unspecified; K21.9 Gastro-esophageal reflux disease without esophagitis; Z88.5 Allergy status to narcotic agent; Z88.0 Allergy status to penicillin; Z88.2 Allergy status to sulfonamides
CPT/HCPCS: 36415; 74018; 74019; 74022; 74177; 80053; 81001; 82150; 82550; 82553; 83605; 83690; 83735; 84484; 85025; 87040; 93005; 94799; 99284; J1170; J1956; J2060; J2405; J7030; Q9967; U0002

== ENCOUNTER → 2021-10-30 | Outpatient (CLI) | payer BC ==
[~2021-10-30] MED LIST changes: +DIATRIZOATE MEGL/DIATRIZOA SOD 30 ML BTL PO ONE; +REGLAN10 MG PO; +zinc
== END ==
LOC: CT 15:21
PROVIDERS: ATTEND Internal Medicine Gastroenterology
DX: R11.2 Nausea with vomiting, unspecified (principal); R10.30 Lower abdominal pain, unspecified; R14.0 Abdominal distension (gaseous)
CPT/HCPCS: 74176; Q9963

== ENCOUNTER → 2021-10-31 | Day surgery (SDC) | payer BC ==
[~2021-10-31] MED LIST changes: -DIATRIZOATE MEGL/DIATRIZOA SOD 30 ML BTL PO ONE; +FENTANYL CITRATE/PF 100MCG/2 ML INJ ONE; +LIDOCAINE HCL 2% LOCAL INJ 5 ML SDV VIAL INJ ONE; +METOCLOPRAMIDE HCL 10 MG/2ML VIAL ONE; +MIDAZOLAM HCL 2 MG/2 ML VIAL ONE; +PROPOFOL IV EMULSION 10 MG/ML 20 ML VIAL ONE
[2021-10-31 12:00] VITALS: BP 130/80
== END | disposition home or self-care (01) ==
LOC: OR 08:38
PROVIDERS: ATTEND Internal Medicine Gastroenterology
DX: K29.70 Gastritis, unspecified, without bleeding (principal); K29.80 Duodenitis without bleeding; Q40.8 Other specified congenital malformations of upper alimentary tract; K20.90 Esophagitis, unspecified without bleeding; K21.9 Gastro-esophageal reflux disease without esophagitis; R19.7 Diarrhea, unspecified; R10.30 Lower abdominal pain, unspecified; Z71.3 Dietary counseling and surveillance; D64.9 Anemia, unspecified; F41.9 Anxiety disorder, unspecified; I10 Essential (primary) hypertension; I25.10 Atherosclerotic heart disease of native coronary artery without angina pectoris; Z88.6 Allergy status to analgesic agent; Z88.1 Allergy status to other antibiotic agents; Z88.0 Allergy status to penicillin; Z88.2 Allergy status to sulfonamides; Z01.810 Encounter for preprocedural cardiovascular examination; Z01.812 Encounter for preprocedural laboratory examination; Z20.822 Contact with and (suspected) exposure to COVID-19; Z79.82 Long term (current) use of aspirin; Z79.899 Other long term (current) drug therapy; Z68.30 Body mass index [BMI] 30.0-30.9, adult; Z86.16 Personal history of COVID-19; Z90.49 Acquired absence of other specified parts of digestive tract
CPT/HCPCS: 0223U; 36415; 43233; 43239; 93005; J2001; J2250; J2765; J3010

== ENCOUNTER 2022-06-27 04:41 | Inpatient (IN) | payer BC ==
[~2022-06-27] VITALS: Ht 170.2 cm; Wt 86.2 kg
[~2022-06-27 04:41] MED LIST changes: -FENTANYL CITRATE/PF 100MCG/2 ML INJ ONE; -LIDOCAINE HCL 2% LOCAL INJ 5 ML SDV VIAL INJ ONE; -METOCLOPRAMIDE HCL 10 MG/2ML VIAL ONE; -MIDAZOLAM HCL 2 MG/2 ML VIAL ONE; -PROPOFOL IV EMULSION 10 MG/ML 20 ML VIAL ONE
[2022-06-27] MEDS ORDERED: ONDANSETRON HCL INJ 2MG/ML 2ML 2 MG/ML VIAL ONE (04:51)
[2022-06-27] MEDS ORDERED: ONDANSETRON HCL INJ 2MG/ML 2ML 2 MG/ML VIAL IV STA (04:55)
[2022-06-27] MEDS ORDERED: SODIUM CHLORIDE 0.9% 1000ML 1,000 ML IV ONE (05:00)
[2022-06-27 05:10] LABS: BASOPHILS # (AUTO) 0.1 (0.0-0.1); BASOPHILS % 0.5 % (0.0-1.0); EOSINOPHILS # (AUTO) 0.4 (0.0-0.4); EOSINOPHILS % 2.4 % (0.0-6.0); HEMATOCRIT 49.9 % (34.2-44.1); HEMOGLOBIN 15.6 g/dL (12.0-16.0); LYMPHOCYTES # (AUTO) 3.8 (1.0-3.2); LYMPHOCYTES % 23.9 % (18.0-39.1); MEAN CORPUSCULAR HEMOGLOBIN 27.3 pg (28-32); MEAN CORPUSCULAR HGB CONC 31.3 g/dL (31-35); MEAN CORPUSCULAR VOLUME 87.2 fL (81-99); MONOCYTES # (AUTO) 1.2 (0.2-0.8); MONOCYTES % 7.5 % (4.4-11.3); NEUTROPHILS # (AUTO) 10.3 (2.1-6.9); NEUTROPHILS % 65.1 % (38.7-80.0); PLATELET COUNT 255 x10e3/uL (140-360); RED BLOOD COUNT 5.72 x10e6/uL (3.6-5.1); RED CELL DISTRIBUTION WIDTH 16.3 % (11.7-14.4)
[2022-06-27] MEDS ORDERED: KETOROLAC TROMETHAMINE 30 MG/ML VIAL IV ONE (05:15)
[2022-06-27 05:20] LABS: INR 0.85; PROTHROMBIN TIME 12.1 seconds (11.9-14.5)
[2022-06-27 05:21] LABS: PARTIAL THROMBOPLASTIN TIME 27.2 seconds (23.8-35.5)
[2022-06-27 05:29] LABS: ALBUMIN 3.7 g/dL (3.5-5.0); ALBUMIN/GLOBULIN RATIO 0.9 (0.8-2.0); CALCIUM 10.2 mg/dL (8.4-10.2); CREATININE, SERUM 0.97 mg/dL (0.57-1.11)
[2022-06-27] MEDS ORDERED: IOPAMIDOL 370 MG/ML 100 ML INFUS..BTL INJ ONE (05:54)
[2022-06-27] MEDS ORDERED: SODIUM CHLORIDE FLUSH 10 ML SYR IV PRN (06:00)
[2022-06-27 07:21] LABS: CLARITY,URINE CLEAR (CLEAR); COLOR,URINE YELLOW (YELLOW); KETONES,URINE NEGATIVE (NEGATIVE); LEUKOCYTE ESTERASE ,URINE NEGATIVE (NEGATIVE); NITRITE,URINE NEGATIVE (NEGATIVE); PROTEIN,URINE DIPSTICK NEGATIVE (NEGATIVE); URINE UROBILINOGEN 0.2 mg/dL (0.2 - 1)
[2022-06-27 07:22] LABS: AMPHETAMINES SCREEN,URINE NEGATIVE (NEGATIVE); BENZODIAZEPINES SCREEN,URINE POSITIVE (NEGATIVE); PHENCYCLIDINE SCREEN,URINE NEGATIVE (NEGATIVE)
[2022-06-27] MEDS: SODIUM CHLORIDE 0.9% 1000ML 1,000 ML IV SCH ×2 (07:44→14:10)
[2022-06-27 08:05] LABS: BACTERIA,URINE RARE /HPF; EPITHELIAL CELLS,URINE FEW /LPF; WBC,URINE (MAN) 0-5 /HPF (0-5)
[2022-06-27] MEDS ORDERED: DIPHENHYDRAMINE HCL INJ 50 MG/ML VIAL IV STA (09:33)
[2022-06-27] MEDS ORDERED: METOCLOPRAMIDE HCL 10 MG/2ML VIAL IV ONE (09:45)
[2022-06-27 12:50] VITALS: BP 142/80
[2022-06-27 12:57] VITALS: BP 142/80
[2022-06-27] MEDS: ONDANSETRON HCL INJ 2MG/ML 2ML 2 MG/ML VIAL IV PRN ×2 (14:09→20:36)
[2022-06-27] MEDS: KETOROLAC TROMETHAMINE 30 MG/ML VIAL IV PRN ×2 (14:09→20:37)
[2022-06-27] MEDS: METOCLOPRAMIDE HCL 10 MG/2ML VIAL IV SCH ×2 (14:10→20:38)
[2022-06-27] MEDS ORDERED: SINGULAIR10 MG PO (16:55)
[2022-06-27] MEDS ORDERED: CIPROFLOXACIN 400 MG/D5W 200ML 200 ML IV SCH ×2 (18:20→20:00)
[2022-06-27 19:15] VITALS: BP 131/83
[2022-06-27] MEDS: LEVOFLOXACIN 500MG/D5W 100ML 100 ML IV SCH (20:38)
[2022-06-27 21:56] VITALS: BP 131/83
[2022-06-28] VITALS (7 sets, daily range): BP systolic 116–151; BP diastolic 60–83
[2022-06-28] MEDS: KETOROLAC TROMETHAMINE 30 MG/ML VIAL IV PRN ×3 (04:29→21:08)
[2022-06-28] MEDS: METOCLOPRAMIDE HCL 10 MG/2ML VIAL IV SCH ×3 (05:20→22:59)
[2022-06-28] MEDS: SODIUM CHLORIDE 0.9% 1000ML 1,000 ML IV SCH ×3 (07:00→21:07)
[2022-06-28] MEDS: LEVOFLOXACIN 500MG/D5W 100ML 100 ML IV SCH (21:07)
[2022-06-28] MEDS: ONDANSETRON HCL INJ 2MG/ML 2ML 2 MG/ML VIAL IV PRN (22:59)
[2022-06-29] VITALS (7 sets, daily range): BP systolic 111–166; BP diastolic 60–95
[2022-06-29] MEDS: SODIUM CHLORIDE 0.9% 1000ML 1,000 ML IV SCH ×2 (01:25→05:25)
[2022-06-29] MEDS: KETOROLAC TROMETHAMINE 30 MG/ML VIAL IV PRN (03:14)
[2022-06-29] MEDS: METOCLOPRAMIDE HCL 10 MG/2ML VIAL IV SCH ×3 (05:25→21:31)
[2022-06-29 07:42] LABS: BASOPHILS # (AUTO) 0.1 (0.0-0.1); BASOPHILS % 0.6 % (0.0-1.0); EOSINOPHILS # (AUTO) 0.3 (0.0-0.4); EOSINOPHILS % 2.6 % (0.0-6.0); HEMATOCRIT 37.5 % (34.2-44.1); HEMOGLOBIN 12.4 g/dL (12.0-16.0); MEAN CORPUSCULAR HEMOGLOBIN 30.5 pg (28-32); MEAN CORPUSCULAR HGB CONC 33.1 g/dL (31-35); MEAN CORPUSCULAR VOLUME 92.4 fL (81-99); MONOCYTES # (AUTO) 0.9 (0.2-0.8); MONOCYTES % 8.6 % (4.4-11.3); NEUTROPHILS # (AUTO) 6.9 (2.1-6.9); NEUTROPHILS % 67.4 % (38.7-80.0); PLATELET COUNT 171 x10e3/uL (140-360); RED BLOOD COUNT 4.06 x10e6/uL (3.6-5.1); RED CELL DISTRIBUTION WIDTH 18.2 % (11.7-14.4)
[2022-06-29] MEDS: LORAZEPAM INJ 2 MG/ML VIAL IV PRN ×2 (07:59→21:31)
[2022-06-29 08:01] LABS: ALBUMIN 2.8 g/dL (3.5-5.0); ANION GAP 14.8 mmol/L (8-16); CALCIUM 8.6 mg/dL (8.4-10.2); CREATININE, SERUM 0.7 mg/dL (0.57-1.11); POTASSIUM 4.8 mmol/L (3.5-5.1)
[2022-06-29] MEDS: LEVOFLOXACIN 500MG/D5W 100ML 100 ML IV SCH (21:31)
[2022-06-30] VITALS (8 sets, daily range): BP systolic 122–158; BP diastolic 72–90
[2022-06-30] MEDS ORDERED: HYDRALAZINE HCL 20 MG/ML VIAL IV PRN (04:15)
[2022-06-30] MEDS: METOCLOPRAMIDE HCL 10 MG/2ML VIAL IV SCH ×3 (06:05→21:56)
[2022-06-30] MEDS: SODIUM CHLORIDE 0.9% 1000ML 1,000 ML IV SCH (06:14)
[2022-06-30] MEDS: LORAZEPAM INJ 2 MG/ML VIAL IV PRN ×2 (08:21→22:00)
[2022-06-30] MEDS: LEVOFLOXACIN 500MG/D5W 100ML 100 ML IV SCH (21:55)
[2022-07-01 00:17] VITALS: BP 133/72
[2022-07-01 04:00] VITALS: BP 135/86
[2022-07-01] MEDS: SODIUM CHLORIDE 0.9% 1000ML 1,000 ML IV SCH (05:30)
[2022-07-01] MEDS: METOCLOPRAMIDE HCL 10 MG/2ML VIAL IV SCH (05:36)
[2022-07-01 07:53] VITALS: BP 132/86
[2022-07-01 08:00] VITALS: BP 132/86
[2022-07-01 11:59] VITALS: BP 140/92
== END 2022-07-01 13:27 | disposition home or self-care (01) | DRG 389 ==
LOC: ER 04:50 → ERHOLD 12:43 → MED/SURG3 12:50
PROVIDERS: ADMIT Internal Medicine; ATTEND Internal Medicine
DX: K56.50 Intestinal adhesions [bands], unspecified as to partial versus complete obstruction (principal); K86.2 Cyst of pancreas; I10 Essential (primary) hypertension; K76.0 Fatty (change of) liver, not elsewhere classified; E86.0 Dehydration; K57.90 Diverticulosis of intestine, part unspecified, without perforation or abscess without bleeding; E11.9 Type 2 diabetes mellitus without complications; Z20.822 Contact with and (suspected) exposure to COVID-19; Z88.0 Allergy status to penicillin; Z88.2 Allergy status to sulfonamides; Z90.49 Acquired absence of other specified parts of digestive tract; Z79.82 Long term (current) use of aspirin
CPT/HCPCS: 36415; 71045; 74022; 74177; 80053; 80307; 81001; 83690; 84484; 85025; 85610; 85730; 93005; 99284; J1200; J1885; J1956; J2060; J2405; J2765; J7030; Q9967

== ENCOUNTER 2024-03-21 12:59 | Inpatient (IN) | payer MEDICARE ==
[~2024-03-21] VITALS: Ht 170.2 cm; Wt 83.9 kg
[2024-03-21] VITALS (7 sets, daily range): BP systolic 122–131; BP diastolic 73–82; PULSE 67–79; RESP 16–20; TEMP 97.7–98.3; O2SAT 97
[~2024-03-21 12:59] MED LIST changes: +SINGULAIR10 MG PO
[2024-03-21] MEDS: SODIUM CHLORIDE 0.9% 1000ML 1,000 ML IV STA (13:39)
[2024-03-21] MEDS: ONDANSETRON HCL INJ 2MG/ML 2ML 2 MG/ML VIAL IV STA (13:40)
[2024-03-21] MEDS: HYDROMORPHONE 1MG/1ML INJ IV STA (13:40)
[2024-03-21 13:48] LABS: BASOPHILS # (AUTO) 0.1 (0.0-0.1); BASOPHILS % 0.5 % (0.0-1.0); EOSINOPHILS # (AUTO) 0.3 (0.0-0.4); EOSINOPHILS % 1.9 % (0.0-6.0); HEMATOCRIT 47.7 % (34.2-44.1); HEMOGLOBIN 15.1 g/dL (12.0-16.0); LYMPHOCYTES # (AUTO) 2.7 (1.0-3.2); LYMPHOCYTES % 18.5 % (18.0-39.1); MEAN CORPUSCULAR HGB CONC 31.7 g/dL (31-35); MEAN CORPUSCULAR VOLUME 85.3 fL (81-99); MONOCYTES # (AUTO) 1.2 (0.2-0.8); MONOCYTES % 8.5 % (4.4-11.3); NEUTROPHILS # (AUTO) 10.1 (2.1-6.9); NEUTROPHILS % 70.2 % (38.7-80.0); PLATELET COUNT 261 x10e3/uL (140-360); RED BLOOD COUNT 5.59 x10e6/uL (3.6-5.1); RED CELL DISTRIBUTION WIDTH 14.9 % (11.7-14.4); WHITE BLOOD COUNT 14.41 x10e3/uL (4.8-10.8)
[2024-03-21] MEDS ORDERED: DIATRIZOATE MEGL/DIATRIZOA SOD 30 ML BTL PO ONE (13:51)
[2024-03-21] MEDS ORDERED: IOPAMIDOL 370 MG/ML 100 ML INFUS..BTL INJ ONE (13:51)
[2024-03-21 13:53] LABS: INR 0.86; PROTHROMBIN TIME 12.3 seconds (11.9-14.5)
[2024-03-21 13:54] LABS: PARTIAL THROMBOPLASTIN TIME 24.6 seconds (23.8-35.5)
[2024-03-21 14:02] LABS: ALBUMIN 3.9 g/dL (3.5-5.0); ANION GAP 16.5 mmol/L (8-16); BILIRUBIN,TOTAL 0.6 mg/dL (0.2-1.2); CALCIUM 10.2 mg/dL (8.4-10.2); CREATININE, SERUM 1.04 mg/dL (0.57-1.11); MAGNESIUM 2.5 MG/DL (1.3-2.1); POTASSIUM 4.5 mmol/L (3.5-5.1)
[2024-03-21 14:11] LABS: TROPONIN I 0.008 ng/mL (0-0.300)
[2024-03-21 14:17] LABS: CLARITY,URINE CLEAR (CLEAR); COLOR,URINE YELLOW (YELLOW); PH,URINE 6 (5 - 7)
[2024-03-21 14:18] LABS: BILIRUBIN,URINE NEGATIVE (NEGATIVE); GLUCOSE, URINE NEGATIVE (NEGATIVE); KETONES,URINE NEGATIVE (NEGATIVE); LEUKOCYTE ESTERASE ,URINE SMALL (NEGATIVE); NITRITE,URINE NEGATIVE (NEGATIVE); PROTEIN,URINE DIPSTICK NEGATIVE (NEGATIVE); URINE UROBILINOGEN 0.2 mg/dL (0.2 - 1)
[2024-03-21 14:25] LABS: BACTERIA,URINE MODERATE /HPF; EPITHELIAL CELLS,URINE FEW /LPF; RENAL EPITHELIAL CELLS,URINE FEW
[2024-03-21] MEDS: BENZOCAINE/TETRACAINE/BUTAMBEN AERO SPRAY 56 GM CAN TOP ONE (17:18)
[2024-03-21] MEDS: HYDROMORPHONE 1MG/1ML INJ IV PRN (17:56)
[2024-03-21] MEDS: ONDANSETRON HCL INJ 2MG/ML 2ML 2 MG/ML VIAL IV PRN (17:56)
[2024-03-21] MEDS: LORAZEPAM INJ 2 MG/ML VIAL IV PRN (20:51)
[2024-03-21] MEDS: SODIUM CHLORIDE 0.9% 1000ML 1,000 ML IV SCH (20:51)
[2024-03-21] MEDS ORDERED: METOCLOPRAMIDE10 MG PO (21:13)
[2024-03-21] MEDS ORDERED: ZINC50 MG PO (21:13)
[2024-03-21] MEDS ORDERED: MAGNESIUM250 MG PO (21:13)
[2024-03-21] MEDS ORDERED: DICYCLOMINE HCL20 MG PO (21:13)
[2024-03-21] MEDS ORDERED: MAGNESIUM OXID400 MG PO (21:16)
[2024-03-22] VITALS (7 sets, daily range): BP systolic 118–135; BP diastolic 72–81; PULSE 80–87; RESP 16–20; TEMP 97.4–99.5; O2SAT 96–99
[2024-03-22] MEDS ORDERED: HYDRALAZINE HCL 20 MG/ML VIAL IV PRN (04:15)
[2024-03-22 05:20] LABS: BASOPHILS # (AUTO) 0.1 (0.0-0.1); BASOPHILS % 0.3 % (0.0-1.0); EOSINOPHILS # (AUTO) 0.3 (0.0-0.4); EOSINOPHILS % 1.9 % (0.0-6.0); HEMATOCRIT 39.7 % (34.2-44.1); HEMOGLOBIN 12.7 g/dL (12.0-16.0); LYMPHOCYTES % 13.3 % (18.0-39.1); MEAN CORPUSCULAR HEMOGLOBIN 27.1 pg (28-32); MEAN CORPUSCULAR VOLUME 84.8 fL (81-99); MONOCYTES # (AUTO) 1.5 (0.2-0.8); MONOCYTES % 9.8 % (4.4-11.3); NEUTROPHILS # (AUTO) 11.4 (2.1-6.9); NEUTROPHILS % 74.3 % (38.7-80.0); PLATELET COUNT 241 x10e3/uL (140-360); RED BLOOD COUNT 4.68 x10e6/uL (3.6-5.1); RED CELL DISTRIBUTION WIDTH 14.9 % (11.7-14.4); WHITE BLOOD COUNT 15.37 x10e3/uL (4.8-10.8)
[2024-03-22 05:55] LABS: ALBUMIN 3.1 g/dL (3.5-5.0); ANION GAP 12.4 mmol/L (8-16); BILIRUBIN,TOTAL 0.5 mg/dL (0.2-1.2); CALCIUM 8.6 mg/dL (8.4-10.2); CREATININE, SERUM 0.87 mg/dL (0.57-1.11); POTASSIUM 4.4 mmol/L (3.5-5.1); TOTAL PROTEIN 6.1 g/dL (6.5-8.1)
[2024-03-23] VITALS (8 sets, daily range): BP systolic 128–149; BP diastolic 73–85; PULSE 83–96; RESP 18–20; TEMP 97.8–98.2; O2SAT 94–100
[2024-03-23 06:39] LABS: BASOPHILS # (AUTO) 0.1 (0.0-0.1); BASOPHILS % 0.4 % (0.0-1.0); EOSINOPHILS # (AUTO) 0.3 (0.0-0.4); EOSINOPHILS % 2.4 % (0.0-6.0); HEMATOCRIT 42.3 % (34.2-44.1); HEMOGLOBIN 12.9 g/dL (12.0-16.0); LYMPHOCYTES # (AUTO) 2.3 (1.0-3.2); MEAN CORPUSCULAR HEMOGLOBIN 27.2 pg (28-32); MEAN CORPUSCULAR HGB CONC 30.5 g/dL (31-35); MEAN CORPUSCULAR VOLUME 89.1 fL (81-99); MONOCYTES # (AUTO) 1.3 (0.2-0.8); MONOCYTES % 9.8 % (4.4-11.3); NEUTROPHILS # (AUTO) 8.8 (2.1-6.9); NEUTROPHILS % 68.9 % (38.7-80.0); PLATELET COUNT 218 x10e3/uL (140-360); RED BLOOD COUNT 4.75 x10e6/uL (3.6-5.1); RED CELL DISTRIBUTION WIDTH 14.8 % (11.7-14.4); WHITE BLOOD COUNT 12.81 x10e3/uL (4.8-10.8)
[2024-03-23 07:09] LABS: ALBUMIN 3.1 g/dL (3.5-5.0); ALBUMIN/GLOBULIN RATIO 0.9 (0.8-2.0); ANION GAP 18.1 mmol/L (8-16); BILIRUBIN,TOTAL 0.3 mg/dL (0.2-1.2); CALCIUM 9.1 mg/dL (8.4-10.2); CREATININE, SERUM 0.86 mg/dL (0.57-1.11); MAGNESIUM 1.8 MG/DL (1.3-2.1); POTASSIUM 4.1 mmol/L (3.5-5.1); TOTAL PROTEIN 6.5 g/dL (6.5-8.1)
[2024-03-24] VITALS (7 sets, daily range): BP systolic 142–156; BP diastolic 79–83; PULSE 91–100; RESP 18–20; TEMP 98–98.4; O2SAT 95–97
[2024-03-24] MEDS ORDERED: CHLORASEPTIC SPRAY 177 ML BTL MM PRN (04:00)
[2024-03-24 04:56] LABS: BASOPHILS # (AUTO) 0.1 (0.0-0.1); BASOPHILS % 0.6 % (0.0-1.0); EOSINOPHILS # (AUTO) 0.4 (0.0-0.4); EOSINOPHILS % 3.7 % (0.0-6.0); HEMATOCRIT 39.2 % (34.2-44.1); HEMOGLOBIN 11.8 g/dL (12.0-16.0); LYMPHOCYTES # (AUTO) 2.2 (1.0-3.2); LYMPHOCYTES % 20.6 % (18.0-39.1); MEAN CORPUSCULAR HEMOGLOBIN 26.9 pg (28-32); MEAN CORPUSCULAR HGB CONC 30.1 g/dL (31-35); MEAN CORPUSCULAR VOLUME 89.3 fL (81-99); MONOCYTES # (AUTO) 1.1 (0.2-0.8); MONOCYTES % 10.5 % (4.4-11.3); NEUTROPHILS # (AUTO) 6.7 (2.1-6.9); NEUTROPHILS % 64.1 % (38.7-80.0); PLATELET COUNT 205 x10e3/uL (140-360); RED BLOOD COUNT 4.39 x10e6/uL (3.6-5.1); RED CELL DISTRIBUTION WIDTH 14.5 % (11.7-14.4); WHITE BLOOD COUNT 10.47 x10e3/uL (4.8-10.8)
[2024-03-24 05:24] LABS: ALBUMIN 2.8 g/dL (3.5-5.0); ALBUMIN/GLOBULIN RATIO 0.9 (0.8-2.0); ANION GAP 16.8 mmol/L (8-16); BILIRUBIN,TOTAL 0.3 mg/dL (0.2-1.2); CALCIUM 8.6 mg/dL (8.4-10.2); CREATININE, SERUM 0.81 mg/dL (0.57-1.11); POTASSIUM 3.8 mmol/L (3.5-5.1); TOTAL PROTEIN 5.8 g/dL (6.5-8.1)
[2024-03-25] VITALS (9 sets, daily range): BP systolic 131–148; BP diastolic 73–82; PULSE 81–105; RESP 16–20; TEMP 98.2–99.9; O2SAT 96–100
[2024-03-25] MEDS: HYDROMORPHONE 1MG/1ML INJ IV ONE (08:29)
[2024-03-25] MEDS: ONDANSETRON HCL INJ 2MG/ML 2ML 2 MG/ML VIAL IV ONE (08:30)
[2024-03-25] MEDS: KETOROLAC TROMETHAMINE 10 MG TAB PO PRN (16:18)
[2024-03-25] MEDS: ACETAMINOPHEN 325 MG TAB PO PRN (21:11)
[2024-03-26 07:35] VITALS: BP 114/70; PULSE 84; RESP 18; TEMP 98.1
[2024-03-26 09:21] VITALS: BP 114/70; PULSE 84; RESP 18; TEMP 98.1; O2SAT 100
[2024-03-26 12:00] VITALS: BP 114/78; PULSE 78; RESP 16; TEMP 98.1; O2SAT 97
== END 2024-03-26 13:15 | disposition home or self-care (01) | DRG 389 ==
LOC: ER 13:20 → ERHOLD 17:09 → MED/SURG 19:07
PROVIDERS: ADMIT Internal Medicine; ATTEND Internal Medicine
DX: K56.50 Intestinal adhesions [bands], unspecified as to partial versus complete obstruction (principal); N39.0 Urinary tract infection, site not specified; I10 Essential (primary) hypertension; E11.9 Type 2 diabetes mellitus without complications; K21.9 Gastro-esophageal reflux disease without esophagitis; F41.9 Anxiety disorder, unspecified; D64.9 Anemia, unspecified; Z79.82 Long term (current) use of aspirin; Z90.710 Acquired absence of both cervix and uterus; Z88.0 Allergy status to penicillin; Z88.1 Allergy status to other antibiotic agents; Z88.2 Allergy status to sulfonamides; Z88.5 Allergy status to narcotic agent
CPT/HCPCS: 36415; 71045; 74018; 74019; 74177; 80053; 81001; 82550; 83690; 83735; 84484; 85025; 85610; 85730; 87086; 94760; 99284; J0696; J1171; J2060; J2405; J2470; J7030; Q9963; Q9967

== ENCOUNTER 2024-09-09 09:27 | Emergency (ER) | payer MEDICARE ==
[~2024-09-09] VITALS: Ht 170.2 cm; Wt 81.6 kg
[~2024-09-09 09:27] MED LIST changes: +DICYCLOMINE HCL20 MG PO; +MAGNESIUM250 MG PO; +METOCLOPRAMIDE10 MG PO; +ZINC50 MG PO
[2024-09-09 09:58] VITALS: RESP 16
[2024-09-09 10:00] VITALS: PULSE 64; TEMP 97.6; O2SAT 97
[2024-09-09 10:13] LABS: BASOPHILS # (AUTO) 0.1 (0.0-0.1); BASOPHILS % 0.7 % (0.0-1.0); EOSINOPHILS # (AUTO) 0.3 (0.0-0.4); EOSINOPHILS % 2.7 % (0.0-6.0); HEMATOCRIT 44.3 % (34.2-44.1); HEMOGLOBIN 14.2 g/dL (12.0-16.0); LYMPHOCYTES # (AUTO) 2.8 (1.0-3.2); LYMPHOCYTES % 30.6 % (18.0-39.1); MEAN CORPUSCULAR HEMOGLOBIN 26.3 pg (28-32); MEAN CORPUSCULAR HGB CONC 32.1 g/dL (31-35); MEAN CORPUSCULAR VOLUME 82.2 fL (81-99); MONOCYTES # (AUTO) 0.9 (0.2-0.8); MONOCYTES % 9.4 % (4.4-11.3); NEUTROPHILS # (AUTO) 5.2 (2.1-6.9); NEUTROPHILS % 56.1 % (38.7-80.0); PLATELET COUNT 253 x10e3/uL (140-360); RED BLOOD COUNT 5.39 x10e6/uL (3.6-5.1); RED CELL DISTRIBUTION WIDTH 16.3 % (11.7-14.4); WHITE BLOOD COUNT 9.23 x10e3/uL (4.8-10.8)
[2024-09-09 10:31] LABS: ALBUMIN 3.7 g/dL (3.5-5.0); ANION GAP 15.2 mmol/L (8-16); BILIRUBIN,TOTAL 0.4 mg/dL (0.2-1.2); CALCIUM 9.6 mg/dL (8.4-10.2); CREATININE, SERUM 1.07 mg/dL (0.57-1.11); POTASSIUM 4.2 mmol/L (3.5-5.1); TOTAL PROTEIN 7.4 g/dL (6.5-8.1)
[2024-09-09 10:38] LABS: TROPONIN I 0.012 ng/mL (0-0.300)
== END 2024-09-09 12:25 | disposition home or self-care (01) ==
LOC: ER 09:29
DX: R07.89 Other chest pain (principal); I10 Essential (primary) hypertension; R94.31 Abnormal electrocardiogram [ECG] [EKG]
CPT/HCPCS: 36415; 71045; 80053; 83690; 84484; 85025; 93005; 99284

== ENCOUNTER 2024-09-22 16:52 | Emergency (ER) | payer MEDICARE ==
[~2024-09-22] VITALS: Ht 170.2 cm; Wt 81.6 kg
[2024-09-22 17:02] VITALS: TEMP 98.7
[2024-09-22] MEDS ORDERED: VITAMIN D31250 MCG (17:08)
[2024-09-22 17:22] LABS: BASOPHILS # (AUTO) 0.1 (0.0-0.1); BASOPHILS % 0.6 % (0.0-1.0); EOSINOPHILS # (AUTO) 0.3 (0.0-0.4); EOSINOPHILS % 2.6 % (0.0-6.0); HEMATOCRIT 41.2 % (34.2-44.1); HEMOGLOBIN 13.4 g/dL (12.0-16.0); LYMPHOCYTES # (AUTO) 3.1 (1.0-3.2); LYMPHOCYTES % 31.5 % (18.0-39.1); MEAN CORPUSCULAR HEMOGLOBIN 26.7 pg (28-32); MEAN CORPUSCULAR HGB CONC 32.5 g/dL (31-35); MEAN CORPUSCULAR VOLUME 82.1 fL (81-99); MONOCYTES # (AUTO) 0.9 (0.2-0.8); MONOCYTES % 9.4 % (4.4-11.3); NEUTROPHILS # (AUTO) 5.5 (2.1-6.9); NEUTROPHILS % 55.6 % (38.7-80.0); PLATELET COUNT 237 x10e3/uL (140-360); RED BLOOD COUNT 5.02 x10e6/uL (3.6-5.1); RED CELL DISTRIBUTION WIDTH 16.2 % (11.7-14.4); WHITE BLOOD COUNT 9.88 x10e3/uL (4.8-10.8)
[2024-09-22] MEDS: SODIUM CHLORIDE 0.9% 1000ML 1,000 ML IV STA (17:35)
[2024-09-22 17:37] LABS: INR 0.87; PROTHROMBIN TIME 12.7 seconds (11.9-14.5)
[2024-09-22 17:38] LABS: PARTIAL THROMBOPLASTIN TIME 25.2 seconds (23.8-35.5)
[2024-09-22 17:39] LABS: CLARITY,URINE CLEAR (CLEAR); COLOR,URINE YELLOW (YELLOW); PH,URINE 6 (5 - 7)
[2024-09-22 17:40] LABS: BILIRUBIN,URINE NEGATIVE (NEGATIVE); GLUCOSE, URINE NEGATIVE (NEGATIVE); KETONES,URINE NEGATIVE (NEGATIVE); LEUKOCYTE ESTERASE ,URINE SMALL (NEGATIVE); NITRITE,URINE NEGATIVE (NEGATIVE); PROTEIN,URINE DIPSTICK NEGATIVE (NEGATIVE); URINE UROBILINOGEN 0.2 mg/dL (0.2 - 1)
[2024-09-22 17:46] LABS: ALBUMIN 3.6 g/dL (3.5-5.0); ALBUMIN/GLOBULIN RATIO 1.1 (0.8-2.0); ANION GAP 17.1 mmol/L (8-16); BILIRUBIN,TOTAL 0.3 mg/dL (0.2-1.2); CALCIUM 9.1 mg/dL (8.4-10.2); CREATININE, SERUM 0.98 mg/dL (0.57-1.11); POTASSIUM 4.1 mmol/L (3.5-5.1); TOTAL PROTEIN 6.8 g/dL (6.5-8.1)
[2024-09-22 17:49] LABS: BACTERIA,URINE RARE /HPF; EPITHELIAL CELLS,URINE RARE /LPF; RBC,URINE 0-5 /HPF (0-5)
[2024-09-22 17:52] LABS: TROPONIN I 0.007 ng/mL (0-0.300)
[2024-09-22] MEDS ORDERED: IOPAMIDOL 370 MG/ML 100 ML INFUS..BTL INJ ONE (18:48)
[2024-09-22 19:00] VITALS: PULSE 73; RESP 18
[2024-09-22] MEDS ORDERED: MACROBID 100 M100 MG PO (19:58)
[2024-09-22 20:10] VITALS: BP 146/89; PULSE 69; RESP 17; TEMP 97.8; O2SAT 96
== END 2024-09-22 20:08 | disposition home or self-care (01) ==
LOC: ER 18:05
DX: R20.2 Paresthesia of skin (principal); N39.0 Urinary tract infection, site not specified; I10 Essential (primary) hypertension
CPT/HCPCS: 36415; 70496; 70498; 80053; 81001; 82550; 83690; 83735; 84484; 85025; 85610; 85730; 93005; 99284; J7030; Q9967